=== PATIENT | male | born 1945 | race African-American/Black ===

== ENCOUNTER 2016-11-01 12:25 | Emergency (ER) | payer MEDICARE ==
[2016-11-01 11:29] LABS: BASOPHILS 0.2 %; BASOPHILS ABSOLUTE 0.01 10/3/uL (0.0-0.16); EOSINOPHILS 1.2 %; EOSINOPHILS ABSOLUTE 0.06 10/3/uL (0.0-0.53); ER CBC TAT 0 Hrs 05 Mins; HEMATOCRIT 37.3 % (40.0-51.0); HEMOGLOBIN 11.9 g/dL (13.6-17.8); IMMATURE GRANULOCYTES 0.4 %; IMMATURE GRANULOCYTES ABSOLUTE 0.02 10/3/uL (0.0-0.11); LYMPHOCYTES 29.3 %; LYMPHOCYTES ABSOLUTE 1.44 10/3/uL (0.67-4.30); MEAN CORPUS HGB CONC 31.9 g/dL (32.0-36.0); MEAN CORPUSCULAR HEMOGLOB 29.2 pg (26.0-34.0); MEAN PLATELET VOLUME 9.7 fL (9.2-13.0); MONOCYTES 6.1 %; NEUTROPHILS 62.8 %; NEUTROPHILS ABSOLUTE 3.08 10/3/uL (2.02-8.40); PLATELET COUNT 302 10/3/uL (150-400); RBC DISTRIBUTION WIDTH 20.9 % (12.0-16.0); RED CELL COUNT 4.08 10/6/uL (4.7-6.1); WHITE BLOOD CELLS 4.9 10/3/uL (4.5-10.5)
[2016-11-01 11:32] LABS: MANUAL DIFF NO %; MEAN CORPUSCULAR VOLUME 91.4 fL (80-100)
[2016-11-01 11:35] LABS: PARTIAL THROMBO TIME 28.1 SEC (22.5-37.2); PROTIME (NOT ORD) 13.3 SEC (12.0-14.5)
[2016-11-01 11:45] LABS: BUN (BLOOD UREA NITROGEN) 11 MG/DL (6-23); CALCIUM, SERUM 9.2 MG/DL (8.5-10.4); CHEST PAIN PROFILE TAT 0 Hrs 21 Mins; CHLORIDE, SERUM 103 MMOL/L (96-112); CO2 (CARBON DIOXIDE) 32 MMOL/L (24-34); GFR AFRICAN AMERICAN 187 ML/MIN (>=60); GFR NON AFRICAN AMERICAN 161 ML/MIN (>=60); GLUCOSE, SERUM 125 MG/DL (60-99); POTASSIUM, SERUM 4.1 MMOL/L (3.5-5.3); SODIUM, SERUM 139 MMOL/L (135-148); TROPONIN I 0.03 NG/ML (<0.05)
[~2016-11-01 12:25] MED LIST: ALBUTEROL0.083 % INH; AMMONIUM LAC12 % TOP; ASA5GR PO; ASAB PO; AVELOX400 PO; AZASAN100 MG PO; CALCIUM; CAT1 PO; CELEXA20 PEG; CELEXA20 PO; CELEXA40 MG PO; CITRACAL PO; COZAAR100 MG PEG; COZAAR100 MG PO; DIOVAN HC1 PO; DIOVAN HCT 1601 EACH PO; FENESIN IR400 MG PEG; FERROUS SULF325 M1 PO; FLONASE NAS; FOSAMAX70 MG PEG; FOSAMAX70 MG PO; GLUCPH PO; HALF81 PO; HYDROCHLOROT25 MG PO; HYDROPHILIC TOP; HYZAAR 50/12.51 TAB PO; IMU PO; IRON325 MG PO; ISOSORB DIN30 MG PO; KADIANSR20 PEG; KCL20UDL PEG; KLOR-CON 1010 MEQ PO; LEVAQUIN5T PO; LEVAQUIN750 MG PO; LIDODERM TOP; LOP25 PO; LOVAZA1 GM PO; MELATONIN5 M1 PO; MIRALAXPKT PO; MONOKET PEG; MUCINEX600 MG PO; MULTIVIT/MIN PO; NEUR300 PO; NEXIUM40 MG PO; NEXIUM40 PO; NITROII5C TOP; NITROSTAT0.4 MG SL; NORV10 PO; NORV5 PO; NYS500UDL PO; P10 PO; P20 PO; P5 PEG; P5 PO; PCET PO; PERCOCET1 TA4 PO; PLAVIX PO; PRAVAC PO; PRILO PO; PRILOSEC; PRILOSEC40 MG PO; PRIN20 PO; PROBIOTIC OTC PEG; PROBIOTIC PO; PROTONIX PEG; PROTONIX PO; PROVENTSOL INH; RECLAST IV; REG PO; RESTASIS OPH; ROXICODONE15 MG PO; SPIRONOLACTONE PO; SUCR PEG; SUCR PO; ULTRAM50 PO; VITAMIN D31000 UNIT PO; ZANTAC150 MG PO; ZOCOR40 PO; ZYRTEC ALLGY10 MG PO; [UNRECOGNIZED DRUG - REMARK]; [UNRECOGNIZED DRUG - REMARK] PO; [UNRECOGNIZED DRUG - REMARK] PO; [UNRECOGNIZED DRUG - REMARK] PO; [UNRECOGNIZED DRUG - REMARK] PO; [UNRECOGNIZED DRUG - REMARK] PO
[2016-12-07] MEDS ORDERED: REG PO (08:17)
[2016-12-07] MEDS ORDERED: NEUR300 PO (08:25)
[2016-12-07] MEDS ORDERED: MEDS (08:58)
== END 2016-11-01 15:40 | disposition home or self-care (01) ==
LOC: ER 12:25
PROVIDERS: Emergency Medicine
DX: R07.89 Other chest pain (principal); I10 Essential (primary) hypertension; Z79.899 Other long term (current) drug therapy; Z88.8 Allergy status to other drugs, medicaments and biological substances; Z79.52 Long term (current) use of systemic steroids; Z79.82 Long term (current) use of aspirin
CPT/HCPCS: 71010; 80048; 83735; 83880; 84484; 85025; 85610; 85730; 93005; 96372; 99285